=== PATIENT | male | born 1945 | race Caucasian/White ===

== ENCOUNTER → 2017-07-12 | Outpatient (CLI) | payer MEDICARE ==
--- NOTE | 2017-07-12 20:56 | CONS ---
CONSULTATION DATE OF SERVICE: 07/12/2017 This patient is a 72-year-old gentleman who has been evaluated in the sleep center for possible obstructive sleep apnea-hypopnea syndrome. HISTORY OF PRESENT ILLNESS/SLEEP-WAKE EVALUATION: Patient's usual sleep schedule is from about 8 or 9 p.m. until 5 a.m. Usually no problems with falling asleep. Sometimes he has leg cramps. He does have a TV set in the bedroom. He prefers to sleep on the back position. He sleeps with his and has loud snoring and witnessed episodes by her of stopped breathing during sleep. He grinds his teeth. He wakes up from sleep up to 4 times with one episode of nocturia. In the morning he wakes up tired, worries about his sleep, has problem with concentration. [place] Sleepiness Scale is significantly increased to 11. PAST MEDICAL HISTORY: Positive for acid reflux. PAST SURGICAL HISTORY: 1. Several knee surgeries, including bilateral knee replacements. 2. Surgery for right arm carpal tunnel syndrome. SOCIAL HISTORY: Negative for smoking. Alcohol consumption daily, up to 3 to 5 different types of drinks, light or heavy drinks. MEDICATIONS: 1. Prilosec. 2. Cialis. 3. Ibuprofen. 4. Acetaminophen. 5. Antihistamine. 6. Vitamin D supplement. The patient was recommended to take Requip, but he does not take it at the present time. FAMILY HISTORY: Heart problems, stroke, arthritis, snoring, cancer, acid reflux. REVIEW OF SYSTEMS: Multiple awakenings from sleep. Sleepiness during the day. PHYSICAL EXAM: This is a 72-year-old pleasant gentleman without distress. VITAL SIGNS: BP 129/75, HR 66, RR 16, height 5 feet 7 inches, weight 237, BMI 37.1, temperature 97.7, oxygen saturation at room air 97%. HEENT: PERRLA, EOMI. Evaluation of oropharynx showed tongue protrudes midline; moderately low position of soft palate. Short distance between soft palate and pharyngeal wall. Restriction of nasal breathing; possible nasal septum deviation. NECK: Supple. No JVD. Thyroid is not palpable. LUNGS: Clear to percussion and to auscultation. Good air exchange. No wheezing or rhonchi. HEART: S1, S2 with some irregularities. Slight systolic murmur. ABDOMEN: Slightly obese. EXTREMITIES: No clubbing or cyanosis. DIRECTOR DATABASE: Awake, alert and oriented x3. Cranial nerves 2 to 7 intact. There is no fasciculation or atrophy noted. No focal deficits observed. IMPRESSION: 1. Snoring, witnessed episodes of stopped breathing during sleep, moderately low position of soft palate, restriction of nasal breathing, obesity, sleepiness, [place] Sleepiness Scale of 11; obstructive sleep apnea-hypopnea syndrome. 2. Obesity; BMI 37.1. 3. Acid reflux. 4. Status post tonsillectomy. 5. Status post bilateral knee replacement. 6. Status post surgery for right arm carpal tunnel syndrome. 7. Possible nasal septum deviation and restriction of nasal breathing. PLAN: 1. Polysomnography for evaluation of patient's breathing during sleep. 2. CPAP/BiPAP titration if sleep study confirms obstructive sleep apnea-hypopnea syndrome. 3. Preferable position during sleep on the side. 4. No driving if patient feels any sleepiness. Patient is aware of civil and criminal liability for unsafe driving. 5. I will see patient for follow-up visit to explain results of testing and following plan. Thank you very much for referring this patient for consultation. Sincerely, Diomedes Cohn MD, PhD, FAASM Diplomat of [employer] Specialties [employer] Board of [employer] Medicine Statement Clerks Supervisor of [facility] [place] MMODL / YOHANN: [id number] /
== END | disposition home or self-care (01) ==
LOC: SLEEP 14:15
PROVIDERS: ATTEND Internal Medicine
DX: G47.33 Obstructive sleep apnea (adult) (pediatric) (principal); E66.9 Obesity, unspecified; K21.9 Gastro-esophageal reflux disease without esophagitis; Z79.899 Other long term (current) drug therapy; Z96.653 Presence of artificial knee joint, bilateral
CPT/HCPCS: 99211

== ENCOUNTER → 2017-10-25 | Outpatient (CLI) | payer MEDICARE ==
--- NOTE | 2017-10-25 12:17 | PN ---
PROGRESS NOTE DATE OF SERVICE: 10/25/2017 A 72-year-old gentleman who has been followed in the Sleep Center for treatment of obstructive sleep apnea-hypopnea syndrome. Recently patient had polysomnogram and CPAP titration which showed the patient has severe sleep apnea. I discussed results of sleep studies with patient in details. Presently, he is on treatment with CPAP and basically was able to use machine without significant problems related to pressure, mask or humidification. I checked his reading from his machine with the date when he started to use machine in August of 2017. Usage for more than 4 hours is 21 days out of 30 nights, which is 70% of the time. Average usage time for days when he is using it 5 hours and 53 minutes. CPAP pressure is 7 cm of water. Leak is only 9.2 L/minute, 95%. Apnea-hypopnea index is only 1.7, which is totally normal. [place] Sleepiness Scale today is 5. MEDICATIONS: Prilosec, Cialis, ibuprofen, acetaminophen, vitamin D. PHYSICAL EXAM: Patient in no distress. BP 130/74, HR 56, RR 16, weight 247.2, temperature 97.2, oxygen saturation at room air 95%. OROPHARYNX: Extremely low position of soft palate. ABDOMEN: Slightly obese. Neck Supple, no JVD. Thyroid is not palpable. LUNGS Clear to percussion and to auscultation. Good air exchange. No wheezing or rhonchi. HEART S1, S2 regular. No murmurs, gallops, or rubs. EXTREMITIES No clubbing or cyanosis. JOB PLACEMENT OFFICER Awake, alert, and oriented X3. Cranial nerves 2 to 7 intact. There is no fasciculation or atrophy. noted. No focal deficits observed. IMPRESSION: 1. Severe obstructive sleep apnea-hypopnea syndrome; apnea-hypopnea index 32. Patient demonstrated good compliance with treatment, benefitting from treatment, full of his breathing while on CPAP. 2. Severe periodic limb movements have been documented during diagnostic sleep study and during titration. 3. Obesity. 4. Acid reflux. 5. Status post tonsillectomy. 6. Status post bilateral knee replacement. 7. Status post surgery for right arm carpal tunnel syndrome. 8. Possible nasal septum deviation. PLAN: 1. Patient will continue to use CPAP equipment every night for the whole night. 2. Losing weight. 3. Sleep hygiene with regular time bed for at least 7-1/2 hours. 4. No driving if feeling any sleepiness. 5. Patient should continue a trial with dopamine agonist if he will continue to have any problem with sleep while he is on treatment with CPAP. Thank you very much for allowing me to participate in management of your patient. Sincerely, Diomedes Cohn MD, PhD, FAASM Diplomat of [employer] Specialties [employer] Board of Internal Medicine Cook Candy of [facility] [place] MMODL / IJN: [id number] /
== END | disposition home or self-care (01) ==
LOC: SLEEP 11:27
PROVIDERS: ATTEND Internal Medicine
DX: G47.33 Obstructive sleep apnea (adult) (pediatric) (principal); G47.61 Periodic limb movement disorder; E66.9 Obesity, unspecified; K21.9 Gastro-esophageal reflux disease without esophagitis; Z99.89 Dependence on other enabling machines and devices; Z79.1 Long term (current) use of non-steroidal anti-inflammatories (NSAID); Z79.899 Other long term (current) drug therapy; Z98.890 Other specified postprocedural states; Z96.653 Presence of artificial knee joint, bilateral; Z90.89 Acquired absence of other organs

== ENCOUNTER → 2018-10-16 | Outpatient (CLI) | payer MEDICARE ==
--- NOTE | 2018-10-16 19:33 | PN ---
PROGRESS NOTE DATE OF SERVICE: 10/16/2018 This patient is a 73-year-old gentleman who has been followed in Sleep Center for treatment of obstructive sleep apnea-hypopnea syndrome. Patient successfully continues to use his CPAP equipment every night for the whole night without any significant problems related to mask fitting, pressure or humidification. I checked the patient's CPAP unit. CPAP pressure is 7 cm of water. Usage is 30/30 nights for more than 4 hours with average usage 7.4 hours. Leak is 18 L/minute, which is acceptable. Apnea-hypopnea index is only 0.6, which is absolutely perfect. [place] Sleepiness Scale today is 4. MEDICATIONS: 1. Cialis. 2. Prilosec. 3. Ibuprofen. 4. Acetaminophen. 5. Vitamin D supplement. PHYSICAL EXAMINATION: GENERAL: A pleasant patient in no distress. VITAL SIGNS: BP 119/69, HR 55, RR 16, height 67 inches, weight 218.4 pounds, body mass index 34.1. Patient's weight has decreased by 20 pounds. Oxygen saturation at room air 93%. HEENT: PERRLA, EOMI. Evaluation of oropharynx showed tongue protrudes midline. Extremely low position of soft palate. NECK: Supple. No JVD. Thyroid is not palpable. LUNGS: Clear to percussion and to auscultation. Good air exchange. No wheezing or rhonchi. HEART: S1, S2 regular. No murmurs, gallops or rubs. ABDOMEN: Slightly obese. EXTREMITIES: No clubbing or cyanosis. CAFETERIA AIDE: Awake, alert, and oriented X3. Cranial nerves 2 to 7 intact. There is no fasciculation or atrophy. noted. No focal deficits observed. IMPRESSION: 1. Severe obstructive sleep apnea-hypopnea syndrome. Patient demonstrated 100% compliance with treatment, benefitting from treatment. 2. Episodes of leg cramps. 3. Obesity. 4. Acid reflux. 5. Status post tonsillectomy. 6. Status post bilateral knee replacement. 7. Status post surgery for right arm carpal tunnel syndrome. 8. Possible nasal septum deviation. PLAN: 1. Patient will continue to use CPAP equipment every night. 2. Continue losing weight. 3. Sleep hygiene with regular time in bed for at least 8 hours. 4. We will maintain prescription for all necessary CPAP supplies, including DreamWear mask, tube, filters. Thank you very much for allowing me to participate in the management of your patient. Sincerely, Diomedes Cohn MD, PhD, FAASM Diplomat of [place] [employer] Specialties [employer] Board of Internal Medicine Ground Systems Engineer of [facility] [place] GEMA / ESTELLA: [id number] /
== END ==
LOC: SLEEP 16:12
PROVIDERS: ATTEND Internal Medicine
DX: G47.33 Obstructive sleep apnea (adult) (pediatric) (principal); E66.9 Obesity, unspecified; K21.9 Gastro-esophageal reflux disease without esophagitis; G47.62 Sleep related leg cramps; Z96.653 Presence of artificial knee joint, bilateral; Z90.89 Acquired absence of other organs; Z98.890 Other specified postprocedural states; Z99.89 Dependence on other enabling machines and devices; Z79.1 Long term (current) use of non-steroidal anti-inflammatories (NSAID); Z79.899 Other long term (current) drug therapy

== ENCOUNTER → 2020-05-12 | Outpatient (CLI) | payer MEDICARE ==
--- NOTE | 2020-05-12 20:11 | SFUN ---
SLEEP CENTER FOLLOW UP NOTE DATE OF SERVICE: 05/12/2020 This patient is a 75-year-old gentleman who has been followed in Sleep Center for treatment of obstructive sleep apnea-hypopnea syndrome. The patient continues to use his CPAP equipment every night. No problems with usage of the machine. It is time for him to get his CPAP supplies. I checked his CPAP unit. CPAP pressure is 7 cm of water. Usage is 30/30 nights for more than 4 hours with average usage 7.7 hours per night. Leak is 12 L/minute, which is acceptable. Apnea-hypopnea index reading is only 0.3, which is perfect. [place] Sleepiness Scale today is only 2. MEDICATIONS: None at the present time. PHYSICAL EXAMINATION: GENERAL: A pleasant patient in no distress. VITAL SIGNS: BP 135/71, HR 56, RR 16, height 5 feet 7 inches, weight 219, body mass index 34.2, temperature 98.2, oxygen saturation at room air 97%. HEENT: PERRLA, EOMI. Evaluation of oropharynx showed tongue protrudes midline. Extremely low position of soft palate. Mallampati IV. NECK: Supple. No JVD. Thyroid is not palpable. LUNGS: Clear to percussion and to auscultation. Good air exchange. No wheezing or rhonchi. HEART: S1, S2 regular. No murmurs, gallops or rubs. ABDOMEN: Soft and nontender. Bowel sounds are present. No organomegaly. EXTREMITIES: No clubbing or cyanosis. ACUPUNCTURE PHYSICIAN: Awake, alert, and oriented X3. Cranial nerves 2 to 7 intact. There is no fasciculation or atrophy. noted. No focal deficits observed. IMPRESSION: 1. Severe obstructive sleep apnea-hypopnea syndrome. Patient demonstrated 100% compliance with treatment, benefitting from treatment. 2. Obesity. 3. Acid reflux. 4. Status post tonsillectomy. 5. Status post bilateral knee replacement. 6. Status post surgery for bilateral carpal tunnel syndrome. PLAN: 1. Patient will continue to use PAP equipment every night for the whole night. 2. Sleep hygiene with regular time in bed for at least 7-1/2 to 8 hours. 3. Precautions related to driving. No driving if feeling sleepiness. 4. I will maintain all necessary prescription for PAP supplies including mask, tube, filters. 5. Watching weight. 6. No driving if feeling sleepiness. 7. Follow-up visit in 6 months or earlier if patient has any problems. Thank you very much for allowing me to participate in the management of your patient. Sincerely, Diomedes Cohn MD, PhD, FAASM Diplomat of [employer] Specialties [employer] Board of Internal Medicine Technician Submarine Cable Equipment of [facility] [place] MMODL / ESTELLA: [id number] /
== END | disposition home or self-care (01) ==
LOC: SLEEP 15:26
PROVIDERS: ATTEND Internal Medicine
DX: G47.33 Obstructive sleep apnea (adult) (pediatric) (principal); E66.9 Obesity, unspecified; K21.9 Gastro-esophageal reflux disease without esophagitis; Z96.653 Presence of artificial knee joint, bilateral; Z98.890 Other specified postprocedural states; Z99.89 Dependence on other enabling machines and devices

== ENCOUNTER 2020-09-28 08:34 | Day surgery (SDC) | payer MEDICARE ==
[2020-09-22 14:37] VITALS: BMI 32.6
[~2020-09-28 08:34] MED LIST: LACTATED RINGERS 1,000 ML IV SCH; LIDOCAINE 1% (10MG/ML) FOR IV START INTRADERMA PRN
[2020-09-28] MEDS ORDERED: LACTATED RINGERS 1,000 ML IV ONE (08:53)
[2020-09-28 08:54] VITALS: RESP 18; TEMP 97.8
[2020-09-28] MEDS ORDERED: PROPOFOL 10 MG/ML 20 ML VIAL IV ONE (09:38)
[2020-09-28] MEDS ORDERED: LIDOCAINE 1% INJ 10MG/ML (20 ML MDV) ONE (09:38)
--- NOTE | 2020-09-28 09:47 | P.GSHP ---
History of Present Illness H&P Date: 09/28/20 Chief Complaint: Colon cancer screening, upper GI bleed 75-year-old male here today for upper and lower endoscopy. Has had some dark stools recently suspicious for upper GI bleeding. No bowel complaints. No family history of colon cancer. Last colonoscopy 4-5 years ago. Past Medical History Additional Past Medical History / Comment(s): recent abd. and back ain about a week ago. thought he saw some blood in stool. had testing done at [facility] History of Any Multi-Drug Resistant Organisms: None Reported Past Surgical History: Joint Replacement, Orthopedic Surgery, Tonsillectomy Additional Past Surgical History / Comment(s): bilat tka, rt hand sx, bilat feet sx, lt rotator cuff repair and colonoscopy Past Anesthesia/Blood Transfusion Reactions: No Reported Reaction Smoking Status: Never smoker - Past Family History Mother Family Medical History: Cancer Father Family Medical History: Cancer Medications and Allergies Home Medications Medication Instructions Recorded Confirmed Type No Known Home Medications 09/22/20 09/22/20 History Allergies Allergy/AdvReac Type Severity Reaction Status Date / Time codeine Allergy Rash/Hives Verified 09/22/20 14:28 morphine Allergy Rash/Hives Verified 09/22/20 14:28 Surgical - Exam Vital Signs Temp Pulse Resp BP Pulse Ox 97.8 F 58 L 18 147/67 98 09/28/20 08:53 09/28/20 08:53 09/28/20 08:53 09/28/20 08:53 09/28/20 08:53 Physical exam: General: Well-developed, well-nourished HEENT: Normocephalic, sclerae nonicteric Abdomen: Nontender, nondistended Extremities: No edema Neuro: Alert and oriented Assessment and Plan (1) Colon cancer screening Narrative/Plan: Will proceed with upper and lower endoscopy Current Visit: Yes Status: Acute Code(s): Z12.11 - ENCOUNTER FOR SCREENING FOR MALIGNANT NEOPLASM OF COLON SNOMED Code(s): 223093405
--- NOTE | 2020-09-28 10:01 | P.PCN ---
Date of Procedure: 09/28/20 Procedure(s) Performed: PREOPERATIVE DIAGNOSIS: Upper GI bleed, colon cancer screening POSTOPERATIVE DIAGNOSIS: Duodenal ulcer, gastritis with erosions, left-sided diverticulosis PROCEDURE: 1. EGD with biopsy 2. Colonoscopy ANESTHESIA: MAC SURGEON: Jose Hernandez M.D. SPECIMENS: Duodenum, antrum ENDOSCOPIC PROCEDURE: The patient was on the endoscopy table in the left decubitus position. The Olympus gastroscope was inserted into the oropharynx and passed under direct visualization to the region of the third portion of the duodenum. From that point the scope was slowly withdrawn inspecting all surfaces carefully. The patient had duodenitis with a less than 1 cm duodenal ulcer anteriorly. No adherent clot or evidence of recent bleeding. Biopsies were taken of the inflamed duodenum around the ulcer. The pylorus was widely patent. The stomach was inspected. The patient had gastritis with multiple small erosions present. Biopsies of the antrum took place. Retroflexion revealed a normal hiatus. The esophagus was then carefully examined. There were no neoplastic inflammatory or polypoid lesions throughout the visualized esophagus. The patient was kept on the endoscopy table in the left decubitus position. The Olympus colonoscope was inserted into the anus and passed under direct visualization to the base of the cecum. The appendiceal orifice was visualized. From that point the scope was slowly withdrawn inspecting all surfaces carefully. There were no neoplastic inflammatory or polypoid lesions throughout the cecum, ascending, transverse, descending, sigmoid and rectum. There was mild left-sided diverticulosis noted. Digital rectal examination was normal. The patient was taken to the recovery room in stable condition per anesthesia guidelines. RECOMMENDATIONS: Begin antiacid therapy. Hold NSAID use. Await biopsy results.
[2020-09-28 10:07] VITALS: PULSE 50
[2020-09-28 10:09] VITALS: BP 101/58
== END 2020-09-28 11:05 | disposition home or self-care (01) ==
LOC: ORWHC2ENDO 08:34
PROVIDERS: ATTEND Surgery
DX: Z12.11 Encounter for screening for malignant neoplasm of colon (principal); K57.31 Diverticulosis of large intestine without perforation or abscess with bleeding; K29.81 Duodenitis with bleeding; K29.51 Unspecified chronic gastritis with bleeding; K26.4 Chronic or unspecified duodenal ulcer with hemorrhage; K25.4 Chronic or unspecified gastric ulcer with hemorrhage; E66.9 Obesity, unspecified; Z96.653 Presence of artificial knee joint, bilateral; Z98.890 Other specified postprocedural states; Z90.89 Acquired absence of other organs; Z87.39 Personal history of other diseases of the musculoskeletal system and connective tissue; Z88.5 Allergy status to narcotic agent; Z68.32 Body mass index [BMI] 32.0-32.9, adult; Z80.9 Family history of malignant neoplasm, unspecified
CPT/HCPCS: 88305; 88342; 45378; 43239; J2001; J2704

== ENCOUNTER → 2020-11-25 | Outpatient (CLI) | payer MEDICARE ==
--- NOTE | 2020-11-25 22:28 | SFUN ---
SLEEP CENTER FOLLOW UP NOTE DATE OF SERVICE: 11/25/2020 75-year-old gentleman who has been followed in Sleep Center for treatment of obstructive sleep apnea-hypopnea syndrome. The patient is using his CPAP equipment every night for the whole night. No snoring with the machine. [place] Sleepiness Scale today is a 3. I checked CPAP unit. CPAP pressure 7 cm of water. Usage is 30 out of 30 nights for more than 4 hours. Average usage is 7.7 hours per night. Leak is 11 L/minute. Apnea- hypopnea index 0.5, which is normal. MEDICATIONS: Sucralfate 1 g before meals and bedtime, omeprazole 20 mg before breakfast. PHYSICAL EXAM: Patient in no distress. BP 139/74, HR 50, RR 12, height 5 feet 8 inches and 1/4, weight 219.6 pounds, temperature 98.2, oxygen saturation at room air 97%. Oropharynx extremely low position of soft palate, Mallampati 4. NECK: Supple, no JVD. Thyroid is not palpable. LUNGS: Clear to percussion and to auscultation. Good air exchange. No wheezing or rhonchi. HEART: S1, S2 regular. No murmurs, gallops, or rubs. ABDOMEN: Soft and nontender. Bowel sounds are present. No organomegaly appreciated. EXTREMITIES: No clubbing or cyanosis. CROWNING HAMMER OPERATOR: Awake, alert, and oriented X3. Cranial nerves 2 to 7 intact. There is no fasciculation or atrophy. noted. No focal deficits observed. IMPRESSION: 1. Obstructive sleep apnea-hypopnea syndrome. Patient demonstrated 100% compliance with treatment benefitting from treatment. 2. Peptic ulcer disease. 3. Acid reflux. 4. Obesity. 5. Status post tonsillectomy. 6. Status post bilateral knee replacement. 7. Status post surgical treatment for carpal tunnel syndrome bilaterally. PLAN: 1. Patient will continue to use PAP equipment every night for the whole night. 2. Sleep hygiene with regular time in bed for at least 7-1/2 to 8 hours. 3. Precautions related to driving. No driving if feeling sleepiness. 4. I will maintain all necessary prescription for PAP supplies including mask, tube, filters. 5. Watching weight. 6. No driving if feeling sleepiness. 7. Follow-up visit in 6 months or earlier if patient has any problems. Thank you very much for allowing me to participate in management of your patient. Sincerely, Diomedes Cohn MD, PhD, FAASM Diplomat of [place] [employer] Specialties [employer] Board of Internal Medicine Assembler Bicycle of [facility] [place] MMCL / ESTELLA: [id number] /
== END | disposition home or self-care (01) ==
LOC: SLEEP 10:55
PROVIDERS: ATTEND Internal Medicine
DX: G47.33 Obstructive sleep apnea (adult) (pediatric) (principal); K27.9 Peptic ulcer, site unspecified, unspecified as acute or chronic, without hemorrhage or perforation; K21.9 Gastro-esophageal reflux disease without esophagitis; Z96.653 Presence of artificial knee joint, bilateral; Z98.890 Other specified postprocedural states; Z99.89 Dependence on other enabling machines and devices; E66.9 Obesity, unspecified

== ENCOUNTER 2020-12-28 08:01 | Day surgery (SDC) | payer MEDICARE ==
[2020-12-23 11:40] VITALS: BMI 32.6
[~2020-12-28 08:01] MED LIST changes: -LACTATED RINGERS 1,000 ML IV SCH
[2020-12-28] MEDS: LACTATED RINGERS 1,000 ML IV SCH ×2 (08:30→08:48)
[2020-12-28 08:36] VITALS: TEMP 98.5
[2020-12-28] MEDS ORDERED: PROPOFOL 10 MG/ML 20 ML VIAL IV ONE (08:49)
[2020-12-28] MEDS ORDERED: LIDOCAINE 1% INJ 10MG/ML (20 ML MDV) ONE (08:49)
--- NOTE | 2020-12-28 08:56 | P.GSHP ---
History of Present Illness H&P Date: 12/28/20 Chief Complaint: Peptic ulcer disease Patient was seen in September. Underwent EGD and colonoscopy. Was found have a duodenal ulcer and gastritis with erosions. Patient was started on antiacid therapy. His H. pylori was positive. He completed a course of antibiotics for his H. pylori. Feels well currently. No rectal bleeding or melena. Past Medical History Additional Past Medical History / Comment(s): hx of blood in stool, hx of bleeding ulcer History of Any Multi-Drug Resistant Organisms: None Reported Past Surgical History: Joint Replacement, Orthopedic Surgery, Tonsillectomy Additional Past Surgical History / Comment(s): EGD, cystoscopy Past Anesthesia/Blood Transfusion Reactions: No Reported Reaction Past Psychological History: No Psychological Hx Reported Smoking Status: Never smoker Past Alcohol Use History: Heavy Additional Past Alcohol Use History / Comment(s): DRINKS 3-5 ALCOHOLIC DRINKS DAILY Past Drug Use History: None Reported - Past Family History Mother Family Medical History: Cancer Father Family Medical History: Cancer Medications and Allergies Home Medications Medication Instructions Recorded Confirmed Type Omeprazole [PriLOSEC] 20 mg PO AC-BRKFST #90 cap 09/28/20 12/23/20 Rx Sucralfate [Carafate] 1 gm PO ACHS #120 tab 09/28/20 12/23/20 Rx Allergies Allergy/AdvReac Type Severity Reaction Status Date / Time codeine Allergy Rash/Hives Verified 12/23/20 11:37 morphine Allergy Rash/Hives Verified 12/23/20 11:37 Surgical - Exam Vital Signs Temp Pulse Resp BP Pulse Ox 98.5 F 46 L 20 136/63 97 12/28/20 08:30 12/28/20 08:30 12/28/20 08:30 12/28/20 08:30 12/28/20 08:30 Physical exam: General: Well-developed, well-nourished HEENT: Normocephalic, sclerae nonicteric Abdomen: Nontender, nondistended Extremities: No edema Neuro: Alert and oriented Assessment and Plan (1) Duodenal ulcer Narrative/Plan: Will proceed with upper endoscopy Current Visit: Yes Status: Acute Code(s): K26.9 - DUODENAL ULCER, UNSP ACUTE OR CHRONIC, W/O HEMOR OR PERF SNOMED Code(s): 73822061
--- NOTE | 2020-12-28 09:01 | P.PCN ---
Date of Procedure: 12/28/20 Procedure(s) Performed: Preoperative Dx: Recent history of duodenal ulcer Postoperative Dx: Mild gastritis Procedure: EGD with Bx Anesthesia: Sedation Endoscopist: Dr. Hernandez Specimens: Antrum Endoscopic Procedure: The patient was on the endoscopy table in the left decubitus position. The Olympus gastroscope was inserted into the oropharynx and passed under direct visualization to the region of the third portion of the duodenum. From that point the scope was slowly withdrawn inspecting all surfaces carefully. There were no neoplastic inflammatory or polypoid lesions throughout the duodenum. There was some tortuosity between the first and second portion of the duodenum. No definite stricture or ulcer seen in this area however. The pylorus was widely patent. The stomach was carefully inspected. There was mild gastritis present much improved from recent EGD. A biopsy of the antrum took place to rule out H. pylori. Retroflexion revealed a normal hiatus. The esophagus was then carefully examined. There were no neoplastic inflammatory or polypoid lesions throughout the visualized esophagus. The patient was then taken to the recovery room in stable condition per anesthesia guidelines. Recommendations: Await biopsy results. Continue antiacid therapy.
[2020-12-28 09:09] VITALS: RESP 16
[2020-12-28 09:25] VITALS: BP 123/70; PULSE 48
== END 2020-12-28 09:50 | disposition home or self-care (01) ==
LOC: ORWHC2ENDO 08:01
PROVIDERS: ATTEND Surgery
DX: Z88.5 Allergy status to narcotic agent (principal); K26.9 Duodenal ulcer, unspecified as acute or chronic, without hemorrhage or perforation; K29.80 Duodenitis without bleeding; K21.9 Gastro-esophageal reflux disease without esophagitis; G47.33 Obstructive sleep apnea (adult) (pediatric); Z99.89 Dependence on other enabling machines and devices; K63.89 Other specified diseases of intestine; K29.50 Unspecified chronic gastritis without bleeding; A04.8 Other specified bacterial intestinal infections; Z96.60 Presence of unspecified orthopedic joint implant; Z98.890 Other specified postprocedural states; Z90.89 Acquired absence of other organs; Z79.899 Other long term (current) drug therapy
CPT/HCPCS: 88305; 88342; 43239; J2001; J2704

== ENCOUNTER → 2021-07-14 | Outpatient (CLI) | payer MEDICARE ==
--- NOTE | 2021-07-14 16:56 | SFUN ---
SLEEP CENTER FOLLOW UP NOTE DATE OF SERVICE: 07/14/2021 A 76-year-old gentleman has been followed in Sleep Center for treatment of obstructive sleep apnea-hypopnea syndrome. The patient successfully continued to use his CPAP equipment every night for the whole night getting his CPAP supplies in time. [place] Sleepiness Scale is 4, which is normal. I checked his CPAP unit. The air filter is in good condition. CPAP pressure is 7 cm of water. Usage is 30/30 nights for more than 4 hours, average 7.7 hours per night. Leak is 20 L/minute which is borderline. Apnea-hypopnea index is 0.5 which is in normal range. MEDICATIONS: According to the patient, no medications at the present time . Previously was on medication for acid reflux. PHYSICAL EXAMINATION: GENERAL: Patient in no distress. BP 126/78, HR 48, RR 12, height 5 feet 7-1/2, weight 215.2, body mass index 33.1, temperature 97.0, oxygen saturation at room air 97%. Oropharynx extremely low position of soft palate, Mallampati 4. NECK: Supple, no JVD. Thyroid is not palpable. LUNGS: Clear to percussion and to auscultation. Good air exchange. No wheezing or rhonchi. HEART: S1, S2 regular. No murmurs, gallops, or rubs. ABDOMEN: Soft and nontender. Bowel sounds are present. No organomegaly appreciated. EXTREMITIES: No clubbing or cyanosis. DATA MANAGEMENT ANALYST: Awake, alert, and oriented X3. Cranial nerves 2 to 7 intact. There is no fasciculation or atrophy. noted. No focal deficits observed. IMPRESSION: 1. Obstructive sleep apnea-hypopnea syndrome. Patient demonstrated great compliance with treatment. Normal respiration on CPAP. 2. History of acid reflux and peptic ulcer disease. 3. Obesity, body mass index 33.1. The patient lost 4 pounds since previous visit. 4. Status post tonsillectomy. 5. Status post bilateral knee replacement. 6. Status post surgical treatment for carpal tunnel syndrome bilaterally. PLAN: 1. Patient will continue to use PAP equipment every night for the whole night. 2. Sleep hygiene with regular time in bed for at least 7-1/2 to 8 hours. 3. Precautions related to driving. No driving if feeling sleepiness. 4. I will maintain all necessary prescription for PAP supplies including mask, tube, filters. 5. Watching weight. 6. Follow-up visit in 6 months or earlier if patient has any problems. Thank you very much for allowing me to participate in management of your patient. Sincerely, Diomedes Cohn MD, PhD, FAASM Diplomat of [place] [employer] Sleep Medicine Board of [place] [employer] Medicine Brazer Assembler of [facility] [place] MMODL / YOHANN: [id number] /
== END ==
LOC: SLEEP 11:15
PROVIDERS: ATTEND Internal Medicine
DX: G47.33 Obstructive sleep apnea (adult) (pediatric) (principal); K21.9 Gastro-esophageal reflux disease without esophagitis; E66.9 Obesity, unspecified; Z68.33 Body mass index [BMI] 33.0-33.9, adult; Z87.11 Personal history of peptic ulcer disease; Z90.89 Acquired absence of other organs; Z96.653 Presence of artificial knee joint, bilateral; Z98.890 Other specified postprocedural states; Z88.5 Allergy status to narcotic agent

== ENCOUNTER → 2022-01-12 | Outpatient (CLI) | payer MEDICARE ==
--- NOTE | 2022-01-12 16:49 | SFUN ---
SLEEP CENTER FOLLOW UP NOTE DATE OF SERVICE: 01/12/2022 This 76-year-old gentleman has been followed in Sleep Center for treatment of obstructive sleep apnea-hypopnea syndrome. The patient continues to use his CPAP equipment on a regular basis every night. He denied snoring. He is getting his supplies on time. [place] Sleepiness Scale today is 4, which is normal. I checked his CPAP unit. CPAP pressure is 7 cm of water, usage 30/30 nights, average 8.2 hours per night. Leak is 7 L/minute. Apnea-hypopnea index is 0.4, which is in normal range. MEDICATIONS: 1. Prilosec. 2. Cialis. 3. Requip as needed 0.25 mg for leg discomfort. PHYSICAL EXAMINATION: GENERAL: Pleasant patient in no distress. VITAL SIGNS: BP 131/71, HR 57, RR 16, weight 217.4, height 5 feet 7-1/2 inches, temperature 97.5, oxygen saturation room air 95%. HEENT: PERRLA, EOMI, evaluation of oropharynx showed tongue protrudes midline. Extremely low position of soft palate; Mallampati IV. NECK: Supple, no JVD. Thyroid is not palpable. LUNGS: Clear to percussion and to auscultation. Good air exchange. No wheezing or rhonchi. HEART: S1, S2 regular. No murmurs, gallops, or rubs. ABDOMEN: Soft and nontender. Bowel sounds are present. No organomegaly appreciated. EXTREMITIES: No clubbing or cyanosis. AVIATION MECHANIC: Awake, alert, and oriented X3. Cranial nerves 2 to 7 intact. There is no fasciculation or atrophy. noted. No focal deficits observed. IMPRESSION: 1. Obstructive sleep apnea-hypopnea syndrome. Patient demonstrated practically 100% compliance with treatment. Normal respiration on CPAP. Benefitting from treatment. 2. History of peptic ulcer disease and acid reflux. 3. Mild obesity. 4. Status post bilateral knee replacement. 5. Status post tonsillectomy. 6. Status post surgical treatment for carpal tunnel syndrome bilaterally. PLAN: 1. Patient will continue to use PAP equipment every night for the whole night. 2. Sleep hygiene with regular time in bed for at least 7-1/2 to 8 hours. 3. Precautions related to driving. No driving if feeling sleepiness. 4. I will maintain all necessary prescription for PAP supplies including mask, tube, filters. 5. Watching weight. 6. Follow-up visit in 6 months or earlier if patient has any problems. Thank you very much for allowing me to participate in the management of your patient. Sincerely, Diomedes Cohn MD, PhD, FAASM Diplomat of [employer] Sleep Medicine Board of [employer] Cook Apprentice [employer] of [facility] [place] MMODL / ESTELLA: [id number] /
== END ==
LOC: SLEEP 10:54
PROVIDERS: ATTEND Internal Medicine
DX: G47.33 Obstructive sleep apnea (adult) (pediatric) (principal); Z99.89 Dependence on other enabling machines and devices; E66.9 Obesity, unspecified; Z96.653 Presence of artificial knee joint, bilateral; Z90.09 Acquired absence of other part of head and neck; Z98.890 Other specified postprocedural states; Z88.5 Allergy status to narcotic agent

== ENCOUNTER → 2022-08-03 | Outpatient (CLI) | payer MEDICARE ==
--- NOTE | 2022-08-03 11:00 | P.PN ---
Subjective DATE: 08/03/2022 FOLLOW UP VISIT. Patient with obstructive sleep apnea hypopnea syndrome return to sleep center for follow-up visit. Information from previous visit have been reviewed. Patient is using PAP equipment every night for the whole night, getting PAP supplies in time. The patient does not have significant problems with the mask, PAP unit and humidification. [place] sleepiness scale is 4. I checked PAP unit. PAP unit pressure 7 cm H2O. Usage is 100 % for more then 4 hours, average 8.1 hours per night. Leak is 10 l/m, which is in acceptable range. Apnea Hypopnea Index is 0.3, which is perfect. MEDICATIONS:1. Prilosec 20 mg once a day 2. Cialis 20 mg as needed 3. Ropinirole 0.25 mg at bedtime for leg if needed During physical exam: GENERAL: A pleasant patient without any distress. VITAL SIGNS: BP 138/73, HR 54, RR 16 , weight 210.8, temperature 96.8, oxygen saturation at room air 97 % . HEENT: PERRLA, EOMI.low position of soft palate, Mallapati 4 . NECK: Supple. No JVD. LUNGS: Clear to percussion and to auscultation. Good air exchange. No wheezing or rhonchi. HEART: S1, S2 regular. ABDOMEN: Soft and nontender.[] EXTREMITIES: No clubbing or cyanosis. LABOR OPERATOR: Awake, alert, and oriented x3. No focal deficit. Impressions: 1. Obstructive sleep apnea-hypopnea syndrome. Patient demonstrated great compliance with treatment, benefiting from treatment. 2. History of peptic ulcer disease and acid reflux. 3. Mild obesity. 4. Status post bilateral knee replacement. 5. Status post tonsillectomy. 6. Status post surgical treatment for carpal tunnel syndrome bilaterally. Plan: 1. Continue using PAP equipment every night for the whole night. 2. To change air filter at least 1-2 times per month. 3. PAP unit should stay lower then position of the head. 4. Advised patient to remove all remaining water from humidifier canister daily and make it dry after each usage. Refill canister with fresh distilled water before each usage. 5. Sleep hygiene with regular time in bed for at least 8 hours. 6. Precautions related to driving. No driving if feel any sleepiness. 7. I will maintain prescription for PAP supplies including mask, tube, filters. 8. Follow up visit in 6 months or earlier if patient has any problems. 9. Watching weight. Thank you very much for allowing me to participate in the management of your patient. Diomedes Cohn MD, PhD, FAASM. Diplomat of [employer], Sleep Medicine Board by [employer] Art Handler of [facility] [place]
== END ==
LOC: SLEEP 10:16
PROVIDERS: ATTEND Internal Medicine
DX: G47.33 Obstructive sleep apnea (adult) (pediatric) (principal); G56.03 Carpal tunnel syndrome, bilateral upper limbs; E66.9 Obesity, unspecified; K21.9 Gastro-esophageal reflux disease without esophagitis; Z88.5 Allergy status to narcotic agent; Z90.89 Acquired absence of other organs; Z96.653 Presence of artificial knee joint, bilateral; Z99.89 Dependence on other enabling machines and devices; Z87.11 Personal history of peptic ulcer disease
CPT/HCPCS: 99212

== ENCOUNTER → 2023-02-15 | Outpatient (CLI) | payer MEDICARE ==
--- NOTE | 2023-02-15 10:58 | P.PN ---
Subjective DATE: 02/15/2023 FOLLOW UP VISIT. Patient with obstructive sleep apnea hypopnea syndrome return to sleep center for follow-up visit. Information from previous visit have been reviewed. Patient is using PAP equipment every night for the whole night, getting PAP supplies in time. The patient does not have significant problems with the mask, PAP unit and humidification. [place] sleepiness scale is 3, which is normal. I checked information from PAP unit and explaining to the patient in details. PAP unit pressure 7 cm H2O. Usage is 100 % for more then 4 hours, average 8 hours per night. Leak is 8 l/m, which is in acceptable range. Apnea Hypopnea Index is perfect 0.3. MEDICATIONS: None at the present time 2. [] 3. [] 4. [] 5. [] 6. [] 7. [] 8. [] During physical exam: GENERAL: A pleasant patient without any distress. VITAL SIGNS: BP 156/80, HR 48, RR 16 , weight 219, BMI 33.2, temperature 97.6, oxygen saturation at room air 95 % . HEENT: PERRLA, EOMI.low position of soft palate, Mallapati 4 . NECK: Supple. No JVD. LUNGS: Clear to percussion and to auscultation. Good air exchange. No wheezing or rhonchi. HEART: S1, S2 regular. ABDOMEN: Soft and nontender.[] EXTREMITIES: No clubbing or cyanosis. CINDER WORKER: Awake, alert, and oriented x3. No focal deficit. Impressions: 1. Obstructive sleep apnea-hypopnea syndrome. Patient demonstrated great compliance with treatment, benefiting from treatment. 2. Mild obesity, body mass index 33.2, patient increased his weight on the 9 pounds comparing to the previous visit. 3. Back problems, patient is preparing for back surgery. 4. History of acid reflux and peptic ulcer disease. 5. Status post bilateral knee replacement. 6. Status post tonsillectomy. 7. Status post bilateral treatment of carpal tunnel syndrome. Plan: 1. Continue using PAP equipment every night for the whole night. The patient showed continue using CPAP equipment when he will be in the hospital for the [place] rgical treatment. 2. To change air filter at least 1-2 times per month. 3. PAP unit should stay lower then position of the head. 4. Advised patient to remove all remaining water from humidifier canister daily and make it dry after each usage. Refill canister with fresh distilled water before each usage. 5. Sleep hygiene with regular time in bed for at least 8 hours. 6. Precautions related to driving. No driving if feel any sleepiness. 7. I will maintain prescription for PAP supplies including mask, tube, filters. 8. Watching and losing weight. 9. Follow up visit in 6 months or earlier if patient has any problems. Thank you very much for allowing me to participate in the management of your patient. Diomedes Cohn MD, PhD, FAASM. Diplomat of [employer], Sleep Medicine Board by [employer] Cadmium Liquor Maker of [facility] [place]
== END ==
LOC: SLEEP 10:35
PROVIDERS: ATTEND Internal Medicine
DX: G47.33 Obstructive sleep apnea (adult) (pediatric) (principal); E66.9 Obesity, unspecified; K21.9 Gastro-esophageal reflux disease without esophagitis; Z68.33 Body mass index [BMI] 33.0-33.9, adult; Z87.11 Personal history of peptic ulcer disease; Z96.653 Presence of artificial knee joint, bilateral; M54.9 Dorsalgia, unspecified; Z98.890 Other specified postprocedural states; Z99.89 Dependence on other enabling machines and devices; Z88.5 Allergy status to narcotic agent
CPT/HCPCS: 99212

== ENCOUNTER → 2023-08-23 | Outpatient (CLI) | payer MEDICARE ==
--- NOTE | 2023-08-23 10:59 | P.PN ---
Subjective DATE: 08/23/2023 FOLLOW UP VISIT. Patient with obstructive sleep apnea hypopnea syndrome return to sleep center for follow-up visit. Information from previous visit have been reviewed. Patient is using PAP equipment every night for the whole night, getting PAP supplies in time. The patient does not have significant problems with the mask, PAP unit and humidification. [place] sleepiness scale is 2, which is normal. I checked information from PAP unit. PAP unit pressure 7 cm H2O. Usage is 100 % for more then 4 hours, average 8 hours per night. Leak is 16 l/m, which is in acceptable range. Apnea Hypopnea Index is 0.4, which is normal. Several months ago patient had back surgery, no pain now. MEDICATIONS: None at the present time During physical exam: GENERAL: A pleasant patient without any distress. VITAL SIGNS: BP 142/69, HR 50, RR 20 , weight 208, temperature 97.8, oxygen saturation at room air 96 % . HEENT: PERRLA, EOMI.low position of soft palate, Mallapati 4 . NECK: Supple. No JVD. LUNGS: Clear to percussion and to auscultation. Good air exchange. No wheezing or rhonchi. HEART: S1, S2 regular. ABDOMEN: Soft and nontender.[] EXTREMITIES: No clubbing or cyanosis. PLASTIC PRINTER: Awake, alert, and oriented x3. No focal deficit. Impressions: 1. Obstructive sleep apnea-hypopnea syndrome. Patient demonstrated great compliance with treatment, benefiting from treatment. 2. Status post spinal surgery in April 2023 for back problems. 3. Status post bilateral knee replacement. 4. Mild obesity patient lost 15 pounds since previous visit. 5. History of acid reflux and peptic ulcer disease. 6. Status post tonsillectomy. 7. Status post bilateral treatment for carpal tunnel syndrome. Plan: 1. Continue using PAP equipment every night for the whole night. 2. To change air filter at least 1-2 times per month. 3. PAP unit should stay lower then position of the head. 4. Advised patient to remove all remaining water from humidifier canister daily and make it dry after each usage. Refill canister with fresh distilled water before each usage. 5. Sleep hygiene with regular time in bed for at least 8 hours. 6. Precautions related to driving. No driving if feel any sleepiness. 7. I will maintain prescription for PAP supplies including mask, tube, filters. 8. Follow up visit in 6 months or earlier if patient has any problems. 9. Watching weight. Thank you very much for allowing me to participate in the management of your patient. Diomedes Cohn MD, PhD, FAASM. Diplomat of [place] Board [employer] Medicine, Sleep Medicine Board by [employer] Sewer Line Photo Inspector of [facility] [place]
== END ==
LOC: 3 N SLEEP 10:40
PROVIDERS: ATTEND Internal Medicine
DX: G47.33 Obstructive sleep apnea (adult) (pediatric) (principal); E66.9 Obesity, unspecified; K21.9 Gastro-esophageal reflux disease without esophagitis; Z87.11 Personal history of peptic ulcer disease; Z96.653 Presence of artificial knee joint, bilateral; Z98.890 Other specified postprocedural states; Z90.89 Acquired absence of other organs; Z99.89 Dependence on other enabling machines and devices; Z88.5 Allergy status to narcotic agent
CPT/HCPCS: 99212

== ENCOUNTER → 2024-03-05 | Outpatient (CLI) | payer MEDICARE ==
[2024-03-05 10:39] VITALS: BP 131/72; PULSE 51; RESP 20; TEMP 97.7
--- NOTE | 2024-03-05 11:04 | P.PN ---
Subjective DATE: 03/05/2024 FOLLOW UP VISIT. Patient with obstructive sleep apnea hypopnea syndrome return to sleep center for follow-up visit. Information from previous visit have been reviewed. Patient is using PAP equipment every night for the whole night, getting PAP supplies in time. The patient does not have significant problems with the mask, PAP unit and humidification. [place] sleepiness scale is 4, which is normal. I checked information from PAP unit. PAP unit pressure 7 cm H2O. Usage is 100% for more then 4 hours, average 8.3 hours per night. Leak is 10 l/m, which is in acceptable range. Apnea Hypopnea Index is 0.8, which is normal. MEDICATIONS: None During physical exam: GENERAL: A pleasant patient without any distress. VITAL SIGNS: Please see below, pulse 51, weight 213 pounds. HEENT: PERRLA, EOMI.low position of soft palate, Mallapati 4 . NECK: Supple. No JVD. LUNGS: Clear to percussion and to auscultation. Good air exchange. No wheezing or rhonchi. HEART: S1, S2 regular. ABDOMEN: Soft and nontender.[] EXTREMITIES: No clubbing or cyanosis. CONSTRUCTION AND MAINTENANCE INSPECTOR: Awake, alert, and oriented x3. No focal deficit. Impressions: 1. Obstructive sleep apnea-hypopnea syndrome. Patient demonstrated great compliance with treatment, benefiting from treatment. 2. Bradycardia, pulse rate is about the same as during previous visit. No chest pain, no shortness of breath, no episodes of palpitations. 3. Status post bilateral knee replacement. 4. Status post spinal surgery in April 2023. 5. Mild obesity, patient increased weight on 5 pounds comparing with previous visit. 6. History of peptic ulcer disease and acid reflux. 7. Status post tonsillectomy. 8. Status post bilateral treatment for carpal tunnel syndrome. Plan: 1. Continue using PAP equipment every night for the whole night. 2. To change air filter at least 1-2 times per month. 3. PAP unit should stay lower then position of the head. 4. Advised patient to remove all remaining water from humidifier canister daily and make it dry after each usage. Refill canister with fresh distilled water before each usage. 5. Sleep hygiene with regular time in bed for at least 8 hours. 6. Precautions related to driving. No driving if feel any sleepiness. 7. I will maintain prescription for PAP supplies including mask, tube, filters. 8. Watching and losing weight. 9. Follow up visit in 6 months or earlier if patient has any problems. Thank you very much for allowing me to participate in the management of your patient. Diomedes Cohn MD, PhD, FAASM. Diplomat of [place] Board [employer] Sleep Medicine, Sleep Medicine Board by [employer] Board [employer] Medicine Alumina Plant Supervisor of [facility] [place] Objective - Vital Signs Vital signs: Vital Signs Temp 97.7 F 03/05/24 10:31 Pulse 51 L 03/05/24 10:31 Resp 20 03/05/24 10:31 BP 131/72 03/05/24 10:31 Pulse Ox 95 03/05/24 10:31 FiO2 Intake & Output 03/04/24 03/05/24 03/05/24 18:59 06:59 18:59 Weight 96.615 kg
== END ==
LOC: 3 N SLEEP 10:17
PROVIDERS: ATTEND Internal Medicine
DX: G47.33 Obstructive sleep apnea (adult) (pediatric) (principal); R00.1 Bradycardia, unspecified; E66.9 Obesity, unspecified; K21.9 Gastro-esophageal reflux disease without esophagitis; Z96.653 Presence of artificial knee joint, bilateral; Z87.11 Personal history of peptic ulcer disease; Z98.890 Other specified postprocedural states; Z90.89 Acquired absence of other organs; Z87.39 Personal history of other diseases of the musculoskeletal system and connective tissue; Z99.89 Dependence on other enabling machines and devices; Z88.5 Allergy status to narcotic agent; Z68.31 Body mass index [BMI] 31.0-31.9, adult
CPT/HCPCS: 99212

== ENCOUNTER → 2024-10-15 | Outpatient (CLI) | payer MEDICARE ==
[2024-10-15 11:43] VITALS: BP 138/78; PULSE 51; RESP 16; TEMP 97.7
--- NOTE | 2024-10-15 12:15 | P.PROGSL ---
Subjective DATE: 10/15/2024 FOLLOW UP VISIT. Patient with obstructive sleep apnea hypopnea syndrome return to sleep center for follow-up visit. Information from previous visit have been reviewed. Patient is using PAP equipment every night for the whole night, getting PAP supplies in time. The patient does not have significant problems with the mask, PAP unit and humidification. [place] sleepiness scale is 3, which is normal. I checked information from PAP unit. PAP unit pressure 7 cm H2O. Usage is 100% for more then 4 hours, average 8.6 hours per night. Leak is 11 l/m, which is in acceptable range. Apnea Hypopnea Index is 0.4, which is normal. MEDICATIONS have been reviewed, please see below. During physical exam: GENERAL: A pleasant patient without any distress. VITAL SIGNS: Please see below. HEENT: PERRLA, EOMI.low position of soft palate, Mallapati 4 . NECK: Supple. No JVD. LUNGS: Clear to percussion and to auscultation. Good air exchange. No wheezing or rhonchi. HEART: S1, S2 regular. ABDOMEN: Soft and nontender.[] EXTREMITIES: No clubbing or cyanosis. ELECTRONIC MAINTENANCE SUPERVISOR: Awake, alert, and oriented x3. No focal deficit. Impressions: 1. Obstructive sleep apnea-hypopnea syndrome. Patient demonstrated great compliance with treatment, benefiting from treatment. 2. Status post spinal surgery in April 2023. 3. History of peptic ulcer disease and acid reflux. 4. Mild obesity. 5. Status post bilateral treatment for carpal tunnel syndrome. 6. Status post tonsillectomy. Plan: 1. Continue using PAP equipment every night for the whole night. 2. Sleep hygiene with regular time in bed for at least 7.5-8 hours 3. PAP unit should stay lower then position of the head. 4. Advised patient to remove all remaining water from humidifier canister daily and make it dry after each usage. Refill canister with fresh distilled water before each usage. 5. Watching weight. 6. Precautions related to driving. No driving if feel any sleepiness. 7. I will maintain prescription for PAP supplies including mask, tube, filters. 8. Follow up visit in 8 months or earlier if patient has any problems. Thank you very much for allowing me to participate in the management of your patient. Diomedes Cohn MD, PhD, FAASM. Diplomat of [employer], Sleep Medicine Board by [employer] Maxillofacial Prosthodontist of [facility] [place] Objective - Vital Signs Vital Signs: Vital Signs Temp 97.7 F 10/15/24 11:43 Pulse 51 L 10/15/24 11:43 Resp 16 10/15/24 11:43 BP 138/78 10/15/24 11:43 Pulse Ox 97 10/15/24 11:43 FiO2 Home Medications: Home Medications Medication Instructions Recorded Confirmed Type Omeprazole [PriLOSEC] 20 mg PO AC-BRKFST #90 cap 09/28/20 10/15/24 Rx Sucralfate [Carafate] 1 gm PO ACHS #120 tab 09/28/20 10/15/24 Rx Amoxicillin 500 mg PO Q8H 10/15/24 10/15/24 History Clarithromycin [Biaxin] 500 mg PO DAILY 10/15/24 10/15/24 History
== END ==
LOC: 3 N SLEEP 10:43
PROVIDERS: ATTEND Internal Medicine
DX: G47.33 Obstructive sleep apnea (adult) (pediatric) (principal); Z98.890 Other specified postprocedural states; Z87.19 Personal history of other diseases of the digestive system; Z99.89 Dependence on other enabling machines and devices; Z88.5 Allergy status to narcotic agent
CPT/HCPCS: 99212